=== PATIENT | female | born 1995 ===

== ENCOUNTER → 2018-08-14 | Outpatient (CLI) | payer OTHER | LOC: LAB 13:45 → LAB SHORT 13:45 | DX: L08.89 Other specified local infections of the skin and subcutaneous tissue (principal) | CPT/HCPCS: 87070; 87075; 87147; 87205 ==

== ENCOUNTER → 2018-12-26 | Outpatient (CLI) | payer OTHER | LOC: LAB SHORT 11:37 → LAB 11:37 | PROVIDERS: Registered Nurse Community Health | DX: Z01.419 Encounter for gynecological examination (general) (routine) without abnormal findings (principal) | CPT/HCPCS: G0123 ==

== ENCOUNTER 2019-01-03 06:43 | Day surgery (SDC) | payer OTHER ==
[~2019-01-03] VITALS: Ht 170.2 cm; Wt 71.7 kg
--- NOTE | 2019-01-03 07:39 | NUR ---
01/03/19 0739 Aracelis De Paz PT UNABLE TO GIVE URINE SAMPLE. BLOOD DRAWN AND SENT TO LAB.
--- NOTE | 2019-01-03 09:01 | NUR ---
01/03/19 0901 Charbel Cárdenas PT REPORTS NO PROBLEMS, PAIN IS AT 5/10 BUT STEADY, NOT RISING. DOESN'T WANT MEDS JUST YET.
--- NOTE | 2019-01-03 09:17 | NUR ---
01/03/19 0917 Samy Ennis S PATIENT SITTING UP IN RECLINER CHAIR DRINKING JUICE AND EATING ICE. DENIES NAUSEA AND THE NEED FOR PAIN MEDS AT THIS TIME. PATIENT VISITING WITH MOTHER. VSS
== END 2019-01-03 09:42 | disposition home or self-care (01) ==
LOC: ORSCSDS 06:43
PROVIDERS: Otolaryngology
PROC: 0CBPXZZ Excision of Tonsils, External Approach (ICD-10-PCS; principal; 2019-01-03 08:00)
DX: J35.01 Chronic tonsillitis (principal); G47.33 Obstructive sleep apnea (adult) (pediatric)
CPT/HCPCS: 88304; J0330; J1100; J2250; J2405; J3010; J7120

== ENCOUNTER → 2022-08-23 | Outpatient (CLI) | payer OTHER | END | disposition home or self-care (01) | LOC: LAB SHORT 17:34 → LAB 17:34 | PROVIDERS: Registered Nurse Community Health | DX: Z12.4 Encounter for screening for malignant neoplasm of cervix (principal) | CPT/HCPCS: G0123 ==

== ENCOUNTER → 2025-07-24 | Outpatient (CLI) | payer OTHER ==
[2025-07-24 21:08] LABS: Chlamydia Trachomatis Urine NOT DETECTED (NOT DETECT); Neisseria Gonorrhoea Urine NOT DETECTED (NOT DETECT)
== END ==
LOC: LAB SHORT 15:38 → LAB 15:38
PROVIDERS: Family Medicine
DX: Z34.81 Encounter for supervision of other normal pregnancy, first trimester (principal); Z3A.01 Less than 8 weeks gestation of pregnancy
CPT/HCPCS: 87086; 87491; 87591

== ENCOUNTER → 2025-08-05 | Outpatient (CLI) | payer OTHER | LOC: LAB 18:00 → LAB SHORT 18:00 | DX: R30.0 Dysuria (principal) | CPT/HCPCS: 87086 ==